=== PATIENT | female | born 1995 | race Caucasian/White ===

== ENCOUNTER 2017-01-10 18:51 | Observation (INO) | payer MEDICAID ==
[~2017-01-10] VITALS: Ht 158.8 cm; Wt 69.5 kg
[2017-01-10 19:00] VITALS: BP 106/72
[2017-01-10 19:41] LABS: DAU SCREEN DISCLAIMER
[2017-01-10 21:53] LABS: HIV 1&2 ANTIBODY SCREEN Nonreactive (Nonreactive); HIV-1 p24 ANTIGEN Nonreactive (Nonreactive)
[2017-01-10] MEDS ORDERED: LACTATED RINGERS 1,000 ML IVBOLUS ONE (22:00)
[2017-01-10] MEDS ORDERED: ACET325T14 PO (23:35)
[2017-01-10] MEDS ORDERED: PREN-59 PO (23:35)
== END 2017-01-10 23:45 | disposition home or self-care (01) ==
LOC: LDOP 18:51 → LDIP 20:00
PROVIDERS: ADMIT Obstetrics & Gynecology; ATTEND Obstetrics & Gynecology
DX: O26.893 Other specified pregnancy related conditions, third trimester (principal); M54.9 Dorsalgia, unspecified; R35.0 Frequency of micturition; Z3A.36 36 weeks gestation of pregnancy
CPT/HCPCS: 36415; 59025; 80307; 81001; 85027; 86592; 86703; 86762; 86850; 86900; 87081; 87086; 87147; 87340; 87899; 96360; G0378; J7120; G0435

== ENCOUNTER 2017-01-24 12:03 | Outpatient (CLI) | payer MEDICAID ==
[~2017-01-24 12:03] MED LIST: ACET325T14 PO; PREN-59 PO
[2017-01-25 11:23] LABS: DAU SCREEN DISCLAIMER
== END 2017-01-24 12:04 | disposition home or self-care (01) ==
LOC: LDOP 12:03
PROVIDERS: ATTEND Student in an Organized Health Care Education/Training Program
DX: O46.93 Antepartum hemorrhage, unspecified, third trimester (principal); O62.9 Abnormality of forces of labor, unspecified; O26.893 Other specified pregnancy related conditions, third trimester; O99.013 Anemia complicating pregnancy, third trimester; M54.9 Dorsalgia, unspecified; M25.519 Pain in unspecified shoulder; Z3A.37 37 weeks gestation of pregnancy
CPT/HCPCS: 59025; 80307; 99211; G0463

== ENCOUNTER 2017-01-25 21:52 | Inpatient (IN) | payer MEDICAID ==
[~2017-01-25] VITALS: Ht 157.5 cm; Wt 69.5 kg
[2017-01-25] MEDS: LACTATED RINGERS 1,000 ML IV SCH (08:00)
[2017-01-25] MEDS ORDERED: OXYTOCIN 30U/ 0.9% NaCL 500ML 500 ML IV ONE (22:33)
[2017-01-25] MEDS ORDERED: AMPICILLIN 2 GM in SODIUM CHLORIDE 0.9% 100 ML IVPB STA (22:33)
[2017-01-25] MEDS ORDERED: D5%-LACTATED RINGERS 1,000 ML IV SCH (22:33)
[2017-01-25] MEDS ORDERED: OXYTOCIN 30U/ 0.9% NaCL 500ML 500 ML IV PRN (22:33)
[2017-01-25] MEDS ORDERED: FENTANYL PF 100 MCG/2ML ONE (22:54)
[2017-01-25 23:00] LABS: DAU SCREEN DISCLAIMER
[2017-01-25] MEDS ORDERED: FENTANYL PF 100 MCG/2ML IV PRN (23:00)
[2017-01-25] MEDS ORDERED: ONDANSETRON 2MG/ML, 2ML IVPush PRN (23:00)
[2017-01-25] MEDS ORDERED: TERBUTALINE 1 MG/ML, 1ML SQ PRN (23:00)
[2017-01-25] MEDS ORDERED: FENTANYL PF 100 MCG/2ML IVPush PRN (23:00)
[2017-01-25] MEDS ORDERED: AMPICILLIN 1 GM in SODIUM CHLORIDE 0.9% 50 ML IVPB SCH (23:00)
[2017-01-25] MEDS ORDERED: FENTANYL/BUPIV./NS/PF 250 ML EPIDCONT SCH (23:20)
[2017-01-25] MEDS ORDERED: BUPIVACAINE/PF 0.25% ONE (23:23)
[2017-01-25] MEDS ORDERED: FENTANYL/BUPIV./NS/PF 250 ML EPIDCONT ONE (23:23)
[2017-01-25] MEDS ORDERED: LACTATED RINGERS 1,000 ML IVBOLUS PRN (23:30)
[2017-01-25] MEDS ORDERED: EPHEDRINE 50 MG/ML, 1ML IVPush PRN (23:30)
[2017-01-25] MEDS ORDERED: NALOXONE 0.4 MG/ML, 1ML IVPush PRN (23:30)
[2017-01-26] MEDS ORDERED: NEWBORN KIT ONE (00:45)
[2017-01-26] MEDS ORDERED: SODIUM CITRATE/CITRIC ACID 30 ML UDC ONE (00:46)
[2017-01-26] MEDS ORDERED: METOCLOPRAMIDE 5 MG/ML, 2ML ONE (00:46)
[2017-01-26] MEDS ORDERED: OXYTOCIN 30U/ 0.9% NaCL 500ML 500 ML ONE ×2 (00:46→06:49)
[2017-01-26] MEDS ORDERED: TERBUTALINE 1 MG/ML, 1ML ONE (01:45)
[2017-01-26] MEDS: LACTATED RINGERS 1,000 ML IV SCH ×5 (02:43→19:35)
[2017-01-26] MEDS ORDERED: MISOPROSTOL 200 MCG TABLET ONE (04:15)
[2017-01-26] MEDS ORDERED: LIDOCAINE 1%, 20ML ONE (04:15)
[2017-01-26] MEDS ORDERED: OXYcodone/APAP 5/325MG TABLET ONE (05:54)
[2017-01-26] MEDS ORDERED: IBUPROFEN 600 MG TABLET ONE (05:55)
[2017-01-26] MEDS ORDERED: CALCIUM CARBONATE 500 MG TAB.CHEW PO PRN (06:30)
[2017-01-26] MEDS ORDERED: DIPH,PERTUSS(ACELL),TET VAC/PF NC IM-VACC PRN (06:30)
[2017-01-26] MEDS ORDERED: ONDANSETRON 2MG/ML, 2ML IV PRN (06:30)
[2017-01-26] MEDS ORDERED: MISOPROSTOL 200 MCG TABLET PR PRN (06:30)
[2017-01-26] MEDS ORDERED: OXYcodone IR 5MG TABLET PO PRN ×2 (06:30)
[2017-01-26] MEDS: IBUPROFEN 600 MG TABLET PO PRN ×3 (06:38→19:35)
[2017-01-26] MEDS: OXYcodone/APAP 5/325MG TABLET PO PRN ×5 (06:38→20:42)
[2017-01-26] MEDS: OXYTOCIN 30U/ 0.9% NaCL 500ML 500 ML IV SCH ×2 (06:58→16:04)
[2017-01-26 07:55] VITALS: BP 127/74
[2017-01-26] MEDS: DOCUSATE 100 MG CAPSULE PO PRN ×2 (08:42→19:36)
[2017-01-26] MEDS: PRENATAL VIT/IRON/FA 1 EACH TABLET PO SCH (08:42)
[2017-01-26 12:15] VITALS: BP 123/79
[2017-01-26 16:20] VITALS: BP 117/75
[2017-01-26 19:40] VITALS: BP 115/77
[2017-01-27] MEDS: OXYcodone/APAP 5/325MG TABLET PO PRN ×5 (00:29→17:51)
[2017-01-27 00:40] VITALS: BP 133/83
[2017-01-27] MEDS: OXYTOCIN 30U/ 0.9% NaCL 500ML 500 ML IV SCH (02:04)
[2017-01-27] MEDS: IBUPROFEN 600 MG TABLET PO PRN ×3 (02:56→17:47)
[2017-01-27 03:37] VITALS: BP 121/85
[2017-01-27] MEDS: LACTATED RINGERS 1,000 ML IV SCH (07:20)
[2017-01-27] MEDS: PRENATAL VIT/IRON/FA 1 EACH TABLET PO SCH (08:12)
[2017-01-27 08:35] VITALS: BP 143/91
[2017-01-27] MEDS: DOCUSATE 100 MG CAPSULE PO PRN ×2 (11:12→22:31)
[2017-01-27 22:10] VITALS: BP 131/80
[2017-01-27] MEDS: OXYcodone IR 5MG TABLET PO PRN (22:30)
[2017-01-28] MEDS: IBUPROFEN 600 MG TABLET PO PRN ×2 (02:00→08:35)
[2017-01-28] MEDS: OXYcodone IR 5MG TABLET PO PRN ×3 (02:00→13:37)
[2017-01-28 07:20] VITALS: BP 143/93
[2017-01-28] MEDS: DOCUSATE 100 MG CAPSULE PO PRN (08:35)
[2017-01-28] MEDS: PRENATAL VIT/IRON/FA 1 EACH TABLET PO SCH (08:35)
[2017-01-28 09:45] VITALS: BP 145/89
[2017-01-28 11:55] VITALS: BP 122/80
[2017-01-28] MEDS ORDERED: IBUP800T PO (13:58)
[2017-01-28] MEDS ORDERED: [UNRECOGNIZED DRUG - OTHER] (13:59)
[2017-01-28] MEDS ORDERED: HYDR-3240 PO (14:02)
[2017-01-28] MEDS ORDERED: DOCU-30 PO (14:02)
[2017-01-28] MEDS ORDERED: FERR325T10 PO (14:03)
== END 2017-01-28 15:48 | disposition home or self-care (01) | DRG 775 ==
LOC: LDOP 21:52 → LDIP 22:32 → 2NW 01-26 07:33
PROVIDERS: ADMIT Obstetrics & Gynecology; ATTEND Obstetrics & Gynecology
PROC: 0HQ9XZZ Repair Perineum Skin, External Approach (ICD-10-PCS; principal; 2017-01-26)
PROC: 10E0XZZ Delivery of Products of Conception, External Approach (ICD-10-PCS; 2017-01-26)
PROC: 00HU33Z Insertion of Infusion Device into Spinal Canal, Percutaneous Approach (ICD-10-PCS; 2017-01-26)
PROC: 3E0R3CZ (ICD-10-PCS; 2017-01-26)
DX: O99.824 Streptococcus B carrier state complicating childbirth (principal); O99.334 Smoking (tobacco) complicating childbirth; F17.210 Nicotine dependence, cigarettes, uncomplicated; O99.324 Drug use complicating childbirth; F12.90 Cannabis use, unspecified, uncomplicated; O77.0 Labor and delivery complicated by meconium in amniotic fluid; O76 Abnormality in fetal heart rate and rhythm complicating labor and delivery; Z37.0 Single live birth; Z3A.38 38 weeks gestation of pregnancy; Z90.49 Acquired absence of other specified parts of digestive tract; O70.0 First degree perineal laceration during delivery; O90.81 Anemia of the puerperium; D64.9 Anemia, unspecified
CPT/HCPCS: 36415; 80307; 82803; 85025; 86850; 86900; J0290; J3010; J2590; J3105; J7120

== ENCOUNTER 2017-05-23 18:23 | Emergency (ER) | payer MEDICAID ==
[~2017-05-23] VITALS: Ht 157.5 cm; Wt 70.2 kg
[~2017-05-23 18:23] MED LIST changes: +DOCU-131 PO; +FERR-36 PO; +HYDR-3240 PO; +IBUP-1223 PO; +[UNRECOGNIZED DRUG - OTHER]
[2017-05-23 19:12] LABS: HEMATOCRIT 37.9 % (34.6-47.8); WHITE BLOOD COUNT 12.2 x10^3/uL (4.5-13.2)
[2017-05-23 19:23] LABS: BLOOD UREA NITROGEN 8 mg/dL (7-18)
[2017-05-23 19:32] LABS: PATH.CAST-FLAG NOT PRESENT; SPERM-FLAG NOT PRESENT; SRC-FLAG NOT PRESENT; XTAL-FLAG NOT PRESENT; YLC-FLAG NOT PRESENT
[2017-05-23 21:38] VITALS: BP 118/68
== END 2017-05-23 22:25 | disposition home or self-care (01) ==
LOC: ED 21:29
DX: O09.91 Supervision of high risk pregnancy, unspecified, first trimester (principal); Z3A.08 8 weeks gestation of pregnancy
CPT/HCPCS: 36415; 76830; 80048; 81001; 82040; 84702; 84703; 85025; 87086; 87147; 99285